=== PATIENT | female | born 1940 | race African-American/Black ===

== ENCOUNTER 2023-05-10 07:58 | Outpatient (CLI) | payer MEDICARE, BC | END 2023-05-10 07:59 | disposition home or self-care (01) | LOC: CSHMAMMO 07:58 | PROVIDERS: ATTEND Internal Medicine | DX: Z12.31 Encounter for screening mammogram for malignant neoplasm of breast (principal); Z80.3 Family history of malignant neoplasm of breast | CPT/HCPCS: 77063; 77067 ==

== ENCOUNTER 2023-10-04 09:59 | Outpatient (CLI) | payer MEDICARE, BC | END 2023-10-04 10:00 | disposition home or self-care (01) | LOC: CSHRAD 09:59 | PROVIDERS: ATTEND Internal Medicine | DX: M25.511 Pain in right shoulder (principal); M25.512 Pain in left shoulder; M19.012 Primary osteoarthritis, left shoulder; M19.011 Primary osteoarthritis, right shoulder | CPT/HCPCS: 36415; 80053; 83036; 83540; 83550; 84550 ==

== ENCOUNTER 2023-10-17 09:01 | Outpatient (CLI) | payer MEDICARE, BC | END 2023-10-17 09:02 | disposition home or self-care (01) | LOC: CSHRAD 09:01 | PROVIDERS: ATTEND Internal Medicine Hematology & Oncology | DX: C90.00 Multiple myeloma not having achieved remission (principal); D47.2 Monoclonal gammopathy | CPT/HCPCS: 77075; 83883; 84156; 84166; 86335 ==